=== PATIENT | female | born 1995 | race Caucasian/White ===

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

== ENCOUNTER 2019-04-05 19:04 | Inpatient (IN) | payer MEDICAID ==
[~2019-04-05] VITALS: Ht 165 cm; Wt 65.0 kg
[2019-04-05] VITALS (27 sets, daily range): BP systolic 78–128; BP diastolic 44–81
[~2019-04-05 19:04] MED LIST changes: +FERR325T18 PO; +IBUP-1773 PO; +RANI-613 PO; -RANI150T15 PO
--- NOTE | 2019-04-05 19:11 | NUR ---
FAUSTO MORALES presented to unit via ambulation from ED, accompanied by S.O, with c/o WATER POSSIBLY BROKE. FAUSTO MORALES weighed, gowned, voided, and to bed. EFHM and TOCO applied, VS taken. FAUSTO MORALES oriented to bed controls, call light, TV, heat, and A/C controls.
[2019-04-05] MEDS ORDERED: D5 LR IV SOLUTION 1,000 ML IV ONE (19:20)
[2019-04-05] MEDS ORDERED: D5 LR IV SOLUTION 1,000 ML IV SCH (19:24)
[2019-04-05] MEDS ORDERED: MINERAL OIL CONCENTRATE 99.9% 15 ML UDC TOP PRN (19:30)
[2019-04-05 19:57] LABS: BASOPHILS % (AUTO) 0 % (0-10); EOSINOPHILS % (AUTO) 0 % (0-10); HEMATOCRIT 34 % (35-52); HEMOGLOBIN 11.7 G/DL (11.5-16.0); LYMPHOCYTES # (AUTO) 1.4 X 10^3 (1.0-4.0); LYMPHOCYTES % (AUTO) 10 % (12-44); MEAN CORPUSCULAR HEMOGLOBIN 30 PG (25-34); MEAN CORPUSCULAR HGB CONC 35 G/DL (32-36); MEAN CORPUSCULAR VOLUME 86 FL (80-99); MEAN PLATELET VOLUME 10.1 FL (7.4-10.4); MONOCYTES # (AUTO) 0.9 X 10^3 (0.0-1.0); MONOCYTES % (AUTO) 6 % (0-12); NEUTROPHILS # (AUTO) 11.7 X 10^3 (1.8-7.8); NEUTROPHILS % (AUTO) 84 % (42-75); PLATELET COUNT 219 10^3/uL (130-400); RED CELL DISTRIBUTION WIDTH 13.7 % (10.0-14.5)
[2019-04-05] MEDS ORDERED: OXYTOCIN PRE-MIX DRIP 500 ML IV ONE (21:33)
[2019-04-05 21:34] LABS: LYMPHOCYTES % (MANUAL) 10 %; MONOCYTES % (MANUAL) 2 %; NEUTROPHILS % (MANUAL) 88 %
[2019-04-05 21:35] LABS: RBC MORPH NORMAL
[2019-04-05] MEDS ORDERED: OXYTOCIN PRE-MIX DRIP 500 ML IV SCH (21:37)
[2019-04-05] MEDS ORDERED: SUFENTA 0.6MCG/ML BUPIVA 0.125 100 ML ONE (21:44)
[2019-04-05] MEDS ORDERED: LACTATED RINGERS 1,000 ML IV ONE ×2 (22:13→22:25)
[2019-04-05] MEDS ORDERED: BUPIVACAINE 0.25% 30 ML (SENSORCAINE) VIAL ONE (22:25)
[2019-04-05] MEDS ORDERED: fentaNYL INJECTION 100 MCG/2 ML AMP ONE (22:25)
[2019-04-05] MEDS ORDERED: CATHETER FLUSH 10 ML SYR IV PRN (22:30)
[2019-04-05] MEDS ORDERED: NALOXONE 0.4 MG/ML 1 ML (NARCAN) VIAL IV PRN (22:30)
[2019-04-05] MEDS ORDERED: EPIDURAL (SUFENTA 0.6MCG/ML BUPIVA 0.125%) 100 ML BAG EPI SCH (22:30)
[2019-04-05] MEDS ORDERED: ONDANSETRON 4 MG/2 ML (SDV) Z0FRAN ONE (23:59)
[2019-04-06] VITALS (32 sets, daily range): BP systolic 99–131; BP diastolic 9–75
[2019-04-06] MEDS ORDERED: CATHETER FLUSH 10 ML SYR IV PRN (01:30)
[2019-04-06] MEDS ORDERED: ONDANSETRON 4 MG/2 ML (SDV) Z0FRAN IV PRN (01:30)
[2019-04-06] MEDS ORDERED: NALOXONE 0.4 MG/ML 1 ML (NARCAN) VIAL IV PRN (01:30)
[2019-04-06] MEDS ORDERED: LIDOCAINE/EPI 2% 1:200,00 (XYLOCAINE) 10 ML VIAL ONE (01:58)
[2019-04-06] MEDS ORDERED: MISOPROSTOL 200 MCG (CYTOTEC) TABLET ONE (02:40)
[2019-04-06] MEDS ORDERED: OXYTOCIN PRE-MIX DRIP 500 ML IV SCH (03:16)
[2019-04-06] MEDS ORDERED: WITCH HAZEL(TUCKS) 40 EA JAR TOP PRN (03:30)
[2019-04-06] MEDS ORDERED: MEASLES,MUMPS,RUBELLA 1 EA INJ SQ ONE (03:30)
[2019-04-06] MEDS ORDERED: TETANUS,DIPTH,PERTUSS P/F (BOOSTRIX) 0.5 ML VIAL IM ONE (03:30)
[2019-04-06] MEDS ORDERED: BENZOCAINE/MENTHOL (DERMOPLAST) 60 ML CAN TP PRN (03:30)
--- NOTE | 2019-04-06 03:52 | History & Physical-OB ---
OB - Chief Complaint & HPI Date/Time Date of Admission: Date of Admission: Apr 05, 2019 at 19:21 Date seen by a Provider: Apr 06, 2019 Time Seen by a Provider: 02:00 Chief Complaint/History OB-Reason for Admission/Chief: Rupture of Membranes Hx : 2 Hx Para: 1 Expected Date of Delivery: Apr 17, 2019 Gestational Age in Weeks: 38 Gestational Age in Days: 3 History of Labs RPR NR GBS Neg Allergies and Home Medications Allergies Coded Allergies: No Known Drug Allergies (Unverified , 11/13/13) Home Medications Ferrous Sulfate 325 Mg Tablet, 325 MG PO DAILY@0700 Prescribed by: SILAS BEY on 10/31/16 1044 Ibuprofen 600 Mg Tablet, 600 MG PO Q6H Prescribed by: SILAS BEY on 10/31/16 1044 Vit W-Ca,Fe,FA(<1 mg) 1 Each Tablet, 1 EACH PO DAILY, (Reported) Ranitidine HCl 150 Mg Tablet, 150 MG PO BID, (Reported) Patient Home Medication List Home Medication List Reviewed: Yes OB - History Hx of Present Care: Yes (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) Ultrasounds: Normal mid trimester US Obstetrical Complications: None Medical Complications: None Information Induced Hypertension: No Maternal Gestational Diabetes: No Hemorrhage: No Obstetrical History Hx : 2 Hx Para: 1 Hx # Term Pregnancies: 1 Number of Living Children: 1 Delivery History Hx Vacuum Extraction Assisted: Yes Hx Blood Disorders: No Patient Past Medical History Depression GERD Social History/Family History HIV/AIDS: No Recent Infectious Disease Expo: No Sexually Transmitted Disease: No Alcohol Use: Denies Use Recreational Drug Use: No Smoking Cessation: Never smoker Immunizations Tetanus Booster (TDap): Less than 5yrs Date of Influenza Vaccine: Mar 03, 2019 RPR/VDRL: Negative GBS Status: Negative HBsAG: Negative OB - Admission Exam Physical Exam Vitals: Vital Signs 04/06/19 04/06/19 01:15 02:45 Temp 36.7 Pulse 101 Resp 18 B/P (MAP) 126/58 (80) Pulse Ox 99 O2 Delivery Room Air HEENT: NCAT Heart: Rhythm Normal Lungs: Clear Abdomen: Gravid Cervical Dilatation: 10cm Effacement: 100% Station: +1 Membranes: Ruptured Amniotic Fluid: Clear Heart Rate: 130's Decelerations: Early Decelerations Contractions on Admission: < 5 Minutes Apart Intensity: Firm Labs Laboratory Tests Test 04/05/19 19:30 04/06/19 03:18 Range/Units White Blood Count 14.0 H 4.3-11.0 10^3/uL Red Blood Count 3.93 L 4.35-5.85 10^6/uL Hemoglobin 11.7 11.5-16.0 G/DL Hematocrit 34 L 35-52 % Mean Corpuscular Volume 86 80-99 FL Mean Corpuscular Hemoglobin 30 25-34 PG Mean Corpuscular Hemoglobin Concent 35 32-36 G/DL Red Cell Distribution Width 13.7 10.0-14.5 % Platelet Count 219 130-400 10^3/uL Mean Platelet Volume 10.1 7.4-10.4 FL Neutrophils (%) (Auto) 84 H 42-75 % Lymphocytes (%) (Auto) 10 L 12-44 % Monocytes (%) (Auto) 6 0-12 % Eosinophils (%) (Auto) 0 0-10 % Basophils (%) (Auto) 0 0-10 % Neutrophils # (Auto) 11.7 H 1.8-7.8 X 10^3 Lymphocytes # (Auto) 1.4 1.0-4.0 X 10^3 Monocytes # (Auto) 0.9 0.0-1.0 X 10^3 Eosinophils # (Auto) 0.0 0.0-0.3 10^3/uL Basophils # (Auto) 0.0 0.0-0.1 10^3/uL Neutrophils % (Manual) 88 % Lymphocytes % (Manual) 10 % Monocytes % (Manual) 2 % Blood Morphology Comment NORMAL Glucometer 81 70-110 MG/DL OB - Assessment/Plan/Diagnosis Assessment Assessment: active labor, rupture of membranes Admission Dx labor Admission Status: Inpatient Order (span 2 midnights) Reason for Inpatient Admission: Labor Plan Plan: Expectant Management Other Plan 23 yo @ 38.2 that presented with SROM Plan - Expectant management - GBS neg - Epidural ok Copy Copies To 1: SILAS BEY MD, HOLLY R MD Apr 06, 2019 03:52 POS
--- NOTE | 2019-04-06 03:56 | OB Labor & Delivery Record ---
Vag Delivery Note Vag Delivery Note Date of Delivery: 04/06/19 Preoperative Diagnosis: John Arnold is a (23 /Para 2 /1 ,Gestational Age (wks)38.3 here after SROM at home Postoperative Diagnosis: Same Surgeon: SILAS BEY Neurodiagnostic Technician: None Anesthesia: Epidural Delivery Type: @ 0234 Findings: Viable Male infant, apgars 6/8, weight 7#11, 3480 grams Lacerations: 2nd degree laceration Intact placenta with 3 vessel cord. No nuchal cord, body cord or shoulder dystocia Cytotec 800 mcg placed for hemorrhage prophylaxis Estimated Blood Loss: 200 ml Complications: None Condition: Stable Description of Procedure: The patient is a 23 year old female who presented with SROM at home. She was ad mitted and informed consent was obtained. Her labor course was unremarkable. She progressed to complete dilatation and began to push. She was then set up for delivery. The infant's head was delivered atraumatically in the BORIS position. The shoulders and remainder of the infant's body were then delivered without difficulty. Upon delivery, the head was held below the level of the perineum and the mouth and nares were bulb suctioned. The cord was doubly clamped and cut after 2 min delay and the was handed off to the pediatric staff. An intact placenta with 3-vessel cord delivered via Amrik and there was found to be minimal bleeding.~ Cytotec was placed. Vigorous fundal massage was performed and the fundus was found to be firm. IV oxytocin was given. Examination of the vagina and perineum revealed a 2nd laceration repaired in the usual fashion with 3-0 Reped suture. Following the repair, sponge, instrument and needle counts were correct. Mom in stable condition in the labor suite and infant was taken to nursery for oxygen support. Vitals - Labs Vital Signs - I&O Vital Signs Date Time Temp Pulse Resp B/P (MAP) Pulse Ox O2 Delivery O2 Flow Rate FiO2 04/06/19 02:45 101 18 126/58 (80) 99 Room Air 04/06/19 02:30 100 18 125/75 (92) 99 Room Air 04/06/19 02:15 94 18 131/63 (85) 99 Room Air 04/06/19 02:00 96 18 128/70 (89) 100 Room Air 04/06/19 01:45 94 18 124/63 (83) 100 Room Air 04/06/19 01:30 93 18 112/60 (77) 100 Room Air 04/06/19 01:15 36.7 100 18 109/70 (83) 100 Room Air 04/06/19 01:00 94 18 111/60 (77) 100 Room Air 04/06/19 00:45 94 18 111/60 (77) 100 Room Air 04/06/19 00:40 90 18 117/56 (76) 100 Room Air 04/06/19 00:35 105 18 117/64 (81) 100 Room Air 04/06/19 00:30 81 18 120/58 (78) 100 Room Air 04/06/19 00:25 76 18 122/58 (79) 100 Room Air 04/06/19 00:20 90 18 111/58 (75) 100 Room Air 04/06/19 00:13 77 18 117/63 (81) 100 Room Air 04/06/19 00:10 75 18 123/63 (83) 99 Room Air 04/06/19 00:06 83 18 114/60 (78) 99 Room Air 04/06/19 00:03 93 18 122/64 (83) 99 Room Air 04/06/19 00:00 36.6 73 18 120/60 (80) 99 Room Air 04/05/19 23:57 65 18 94/52 (66) 99 Room Air 04/05/19 23:56 68 18 84/44 (57) 99 Room Air 04/05/19 23:54 64 18 90/44 (59) 99 Room Air 04/05/19 23:52 49 18 78/45 (56) 99 Room Air 04/05/19 23:50 97 18 112/57 (75) 99 Room Air 04/05/19 23:45 103 18 114/71 (85) 97 Room Air 04/05/19 23:40 106 18 122/81 (95) 97 Room Air 04/05/19 23:35 108 18 123/67 (85) 97 Room Air 04/05/19 23:30 101 18 126/66 (86) 97 Room Air 04/05/19 23:25 97 18 127/63 (84) 98 Room Air 04/05/19 23:20 101 18 125/66 (85) 98 Room Air 04/05/19 23:17 109 18 128/64 (85) 98 Room Air 04/05/19 23:10 93 18 121/58 (79) 98 Room Air 04/05/19 23:05 102 18 123/59 (80) 98 Room Air 04/05/19 23:00 86 18 123/68 (86) 98 Room Air 04/05/19 22:55 103 18 114/71 (85) 98 Room Air 04/05/19 22:50 106 18 124/67 (86) 98 Room Air 04/05/19 22:45 104 18 124/67 (86) 98 Room Air 04/05/19 22:40 111 18 123/64 (83) 98 Room Air 04/05/19 22:35 99 18 120/66 (84) 98 Room Air 04/05/19 22:20 106 18 119/62 (81) Room Air 04/05/19 22:06 36.6 97 18 98 Room Air 04/05/19 22:05 96 18 119/64 (82) Room Air 04/05/19 21:50 100 18 111/65 (80) Room Air 04/05/19 21:45 36.6 97 18 125/69 (87) Room Air 04/05/19 21:00 98 18 114/70 (85) 98 Room Air 04/05/19 20:00 36.8 88 18 119/67 (84) 99 Room Air Labs Laboratory Tests 04/05/19 19:30: White Blood Count 14.0H, Red Blood Count 3.93L, Hemoglobin 11.7, Hematocrit 34L, Mean Corpuscular Volume 86, Mean Corpuscular Hemoglobin 30, Mean Corpuscular Hemoglobin Concent 35, Red Cell Distribution Width 13.7, Platelet Count 219, Mean Platelet Volume 10.1, Neutrophils (%) (Auto) 84H, Lymphocytes (%) (Auto) 10L, Monocytes (%) (Auto) 6, Eosinophils (%) (Auto) 0, Basophils (%) (Auto) 0, Neutrophils # (Auto) 11.7H, Lymphocytes # (Auto) 1.4, Monocytes # (Auto) 0.9, Eosinophils # (Auto) 0.0, Basophils # (Auto) 0.0, Neutrophils % (Manual) 88, Lymphocytes % (Manual) 10, Monocytes % (Manual) 2, Blood Morphology Comment NORMAL 04/06/19 03:18: Glucometer 81 SILAS BEY MD Apr 06, 2019 03:56 POS
[2019-04-06] MEDS ORDERED: MISOPROSTOL 200 MCG (CYTOTEC) TABLET PR ONE (04:00)
--- NOTE | 2019-04-06 04:00 | NUR ---
ff 1 below umbilicus, light rubra noted. ice pack applied to perineum. epidural cath removed. pt tolerated well.
[2019-04-06] MEDS: IBUPROFEN 600 MG (MOTRIN) TAB PO SCH ×4 (05:18→23:32)
--- NOTE | 2019-04-06 05:21 | NUR ---
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 Monitors off pt up to bathroom at this time. Addendum: 04/06/19 at 6351 by MORTEZA BRAVO RN WRONG PT
[2019-04-06] MEDS: CATHETER FLUSH 10 ML SYR IV SCH ×3 (06:06→21:07)
[2019-04-06] MEDS: ACETAMINOPHEN 500 MG TAB (TYLENOL) PO SCH ×3 (06:43→21:05)
[2019-04-06] MEDS: DOCUSATE SODIUM 100 MG (COLACE) CAP PO SCH ×2 (09:13→21:05)
--- NOTE | 2019-04-06 17:20 | Anesthesia-Regional Post-Op ---
Regional Patient Condition Mental Status: Alert, Oriented x3 Circulation: Same as Pre-Op Headache: Absent Sensation: Full Recovery Motor Block: Absent Post Op Complications Complications None Follow Up Care/Instructions Patient Instructions None needed. Anesthesia/Patient Condition Patient is doing well, no complaints, stable vital signs, no apparent adverse anesthesia problems. LENIN WADSWORTH DO Apr 06, 2019 17:20 POS
[2019-04-07 03:46] VITALS: BP 117/56
[2019-04-07] MEDS: IBUPROFEN 600 MG (MOTRIN) TAB PO SCH ×3 (05:20→17:48)
[2019-04-07] MEDS: ACETAMINOPHEN 500 MG TAB (TYLENOL) PO SCH ×3 (05:20→22:49)
[2019-04-07 06:05] LABS: BASOPHILS % (AUTO) 0 % (0-10); EOSINOPHILS # (AUTO) 0.1 10^3/uL (0.0-0.3); EOSINOPHILS % (AUTO) 1 % (0-10); HEMATOCRIT 31 % (35-52); HEMOGLOBIN 10.2 G/DL (11.5-16.0); LYMPHOCYTES # (AUTO) 1.4 X 10^3 (1.0-4.0); LYMPHOCYTES % (AUTO) 17 % (12-44); MEAN CORPUSCULAR HEMOGLOBIN 29 PG (25-34); MEAN CORPUSCULAR HGB CONC 33 G/DL (32-36); MEAN CORPUSCULAR VOLUME 89 FL (80-99); MEAN PLATELET VOLUME 9.6 FL (7.4-10.4); MONOCYTES # (AUTO) 0.6 X 10^3 (0.0-1.0); MONOCYTES % (AUTO) 7 % (0-12); NEUTROPHILS % (AUTO) 75 % (42-75); PLATELET COUNT 191 10^3/uL (130-400)
[2019-04-07 08:30] VITALS: BP 105/52
--- NOTE | 2019-04-07 08:30 | NUR ---
CARING FOR INFANT IN ROOM. VSS. A.M. ASSESSMENT COMPLETED.
[2019-04-07] MEDS: DOCUSATE SODIUM 100 MG (COLACE) CAP PO SCH ×2 (09:59→22:48)
--- NOTE | 2019-04-07 10:30 | NUR ---
CONTINUES TO DO WELL. HOLDING INFANT.
[2019-04-07 12:00] VITALS: BP 98/53
--- NOTE | 2019-04-07 12:15 | NUR ---
VISITORS AT BEDSIDE. DENIES ANY PAIN AT THIS TIME.
--- NOTE | 2019-04-07 14:25 | NUR ---
PT NAPPING WHILE IN THE NURSERY.
--- NOTE | 2019-04-07 14:43 | Progress Note ---
Subjective Subjective/Events-last exam Doing well. No new complaints. Bleeding slowed, pain controlled. Objective Exam Last Set of Vital Signs Vital Signs Date Time Temp Pulse Resp B/P (MAP) Pulse Ox O2 Delivery O2 Flow Rate FiO2 04/07/19 12:00 36.9 79 18 98/53 (68) 98 Room Air Capillary Refill : Less Than 3 Seconds I&O Intake and Output 04/07/19 00:00 Intake Total 2350 ml Balance 2350 ml Intake Oral 2350 ml # Voids 7 # Bowel Movements 1 General: Alert, Oriented X3, Cooperative Psych/Mental Status: Mood NL Results/Procedures Lab Laboratory Tests 04/07/19 05:53: White Blood Count 8.0, Red Blood Count 3.48L, Hemoglobin 10.2L, Hematocrit 31L, Mean Corpuscular Volume 89, Mean Corpuscular Hemoglobin 29, Mean Corpuscular Hemoglobin Concent 33, Red Cell Distribution Width 14.0, Platelet Count 191, Mean Platelet Volume 9.6, Neutrophils (%) (Auto) 75, Lymphocytes (%) (Auto) 17, Monocytes (%) (Auto) 7, Eosinophils (%) (Auto) 1, Basophils (%) (Auto) 0, Neutrophils # (Auto) 6.0, Lymphocytes # (Auto) 1.4, Monocytes # (Auto) 0.6, Eosinophils # (Auto) 0.1, Basophils # (Auto) 0.0 Assessment/Plan Assessment/Plan (1) Status post vaginal delivery Assessment & Plan: SROM at 38w3d; s/p on 04/06/19 Routine care. Anticipate DC home tomorrow. Clinical Quality Measures DVT/VTE Risk/Contraindication: Risk Factor Score Per Nursin RFS Level Per Nursing on Admit: 1=Low/No VTE PPX JONO ARENAS DO Apr 07, 2019 14:43 POS
[2019-04-07 16:00] VITALS: BP 109/57
--- NOTE | 2019-04-07 16:00 | NUR ---
VSS. VISITORS AT BEDSIDE. OFFERS NO COMPLAINTS. CARING FOR IN ROOM.
--- NOTE | 2019-04-07 18:30 | NUR ---
EATING FOOD BROUGHT IN FROM S.O. CONTINUES TO CARE FOR IN ROOM. GOOD INTERACTION NOTED.
[2019-04-07 22:51] VITALS: BP 107/55
[2019-04-08] MEDS: IBUPROFEN 600 MG (MOTRIN) TAB PO SCH ×2 (01:38→09:37)
[2019-04-08 03:52] VITALS: BP 110/83
[2019-04-08] MEDS: ACETAMINOPHEN 500 MG TAB (TYLENOL) PO SCH (06:36)
--- NOTE | 2019-04-08 09:02 | NUR ---
report given to JOHN Clark.
[2019-04-08 09:15] VITALS: BP 108/67
[2019-04-08 09:30] VITALS: BP 108/67
[2019-04-08] MEDS: DOCUSATE SODIUM 100 MG (COLACE) CAP PO SCH (09:37)
--- NOTE | 2019-04-08 11:29 | Discharge Summary ---
Diagnosis/Chief Complaint Date of Admission Apr 05, 2019 at 19:21 Date of Discharge 04/08/19 Admission Diagnosis Admission Diagnosis Term Vaginal Delivery of Male 38 Week gestation Discharge Diagnosis See Below Problems/Diagnosis: (1) Status post vaginal delivery Assessment & Plan: SROM at 38w3d; s/p on 04/06/19 Routine care. Anticipate DC home tomorrow. 04/08: Doing well, pain well controlled, bleeding controlled, plan to d/c today with 6 week f.u with Ana Discharge Summary-Simple/Stand Procedures Epidural placement Discharge Physical Examination Allergies: Coded Allergies: No Known Drug Allergies (Unverified , 11/13/13) Vitals & I&Os Vital Sign - Last 12Hours Date Time Temp Pulse Resp B/P (MAP) Pulse Ox O2 Delivery O2 Flow Rate FiO2 04/08/19 03:52 36.8 67 16 110/83 (92) 97 Room Air General Appearance: Alert, Oriented X3, Cooperative, No Acute Distress HEENT: Mucous Memb Moist/[place] Respiratory: Clear to Auscultation, Normal Air Movement Cardiovascular: Regular Rate, No Murmurs Abdominal: Normal Bowel Sounds, Soft, No Tenderness, No Masses, Other (Fundus firm and below umbilicus) Extremities: No Edema, No Tenderness/Swelling Skin: No Rashes, No Breakdown Neuro: Strength at 5/5 X4 Ext, Cranial Nerves 3-12 NL Psych/Mental Status: Mental Status NL, Mood NL Hospital Course Was the Problem List Reviewed?: Yes See final discharge diagnosis. Discussion & Recommendations 23 yo G2 now P2 that delivered at 38 week gestation after SROM at home via Discharge Condition at discharge stable Instructions to patient/family Please see electronic discharge instructions given to patient. Discharge Medications Reviewed and agree with Discharge Medication list on patient's Discharge Instruction sheet Clinical Quality Measures DVT/VTE Risk/Contraindication: Risk Factor Score Per Nursin RFS Level Per Nursing on Admit: 1=Low/No VTE PPX Copy Copies To 1: SILAS BEY MD, HOLLY R MD Apr 08, 2019 11:29 POS
--- NOTE | 2019-04-08 11:34 | Discharge Instructions ---
Discharge Inst-[facility] Reconcile Patient Problems Problems Reviewed?: Yes Depart Medications New, Converted or Re-Newed RX: Transmitted to Pharmacy Continued Medications: Ferrous Sulfate (Ferrous Sulfate) 325 Mg Tablet 325 MG PO DAILY@0700 for 30 Days, TAB Ibuprofen (Ibuprofen) 600 Mg Tablet 600 MG PO Q6H, #90 TAB Vit W-Ca,Fe,FA(<1 mg) ( Vitamins) 1 Each Tablet 1 EACH PO DAILY, TAB Ranitidine HCl (Zantac) 150 Mg Tablet 150 MG PO BID, TAB Follow Up/Instructions Goal/Follow Up: 6 Week F/u with Dr Perez Activity Activity: Activity as Tolerated Driving Instructions: You May Drive NO SMOKING: NO SMOKING Nothing Inside Vagina: No Douching, No [place], No Tampons Diet Discharge Diet: No Restrictions Symptoms to Report to : Bleeding Excessive, Fever Over 101 Degrees F, Nausea/Vomiting, Shortness of Breath For Any Problems or Questions: Contact Your Physician Copies To 1: SILAS PEREZ MD, HOLLY R MD Apr 08, 2019 11:34 POS
--- NOTE | 2019-04-08 14:15 | NUR ---
PT DISCHARGED TO HOME, AMBULATED TO PRIVATE CAR WITH SECURED IN REAR FACING CAR SEAT AND S/O AND LADLE REPAIRER AT SIDE, NO DISTRESS NOTED.
--- OUTSIDE RECORDS SUMMARY | 2019-05-01 17:42 | XMS REPORT | Continuity of Care Document ---
Author Organization Unknown Address Unknown Phone Unavailable Allergies Active Description Code Type Severity Reaction Onset Reported/Identified Relationship to Patient Clinical Status Yes codeine Drug Allergy N/A N/A 06/11/2008 Medications There is no data. Problems Date Dx Coded Attending Type Code Diagnosis Diagnosed By 02/06/2008 JOSÉ MIGUEL LEVY APRN 462 sore throat 02/06/2008 JONO ARENAS DO 462 sore throat 02/06/2008 GHAZALA NORIEGA APRN 462 sore throat 06/11/2008 JOSÉ MIGUEL LEVY APRN 465.9 UPPER RESPIRATORY INFECTION ACUTE 06/11/2008 JONO ARENAS DO 465.9 UPPER RESPIRATORY INFECTION ACUTE 06/11/2008 GHAZALA NORIEGA APRN 465.9 UPPER RESPIRATORY INFECTION ACUTE 07/23/2008 JOSÉ MIGUEL LEVY APRN 487.1 INFLUENZA 07/23/2008 JONO ARENAS DO 487.1 INFLUENZA 07/23/2008 GHAZALA NORIEGA APRN 487.1 INFLUENZA 08/27/2008 JOSÉ MIGUEL LEVY APRN 786.2 cough 08/27/2008 JONO ARENAS DO 786.2 cough 08/27/2008 GHAZALA NORIEGA APRN A 786.2 cough 08/31/2008 JOSÉ MIGUEL LEVY APRN 008.8 GASTROENTERITIS VIRAL 08/31/2008 JONO ARENAS DO 008.8 GASTROENTERITIS VIRAL 08/31/2008 GHAZALA NORIEGA APRN 008.8 GASTROENTERITIS VIRAL 12/12/2008 JOSÉ MIGUEL LEVY APRN V06.5 DT, TETANUS-DIPHTHERIA [Td] ,TDAP 12/12/2008 JONO ARENAS DO V06.5 DT, TETANUS-DIPHTHERIA [Td] ,TDAP 12/12/2008 GHAZALA NORIEGA APRN V06.5 DT, TETANUS-DIPHTHERIA [Td] ,TDAP 01/11/2009 JOSÉ MIGUEL LEVY APRN 079.99 VIRAL SYNDROME 01/11/2009 JONO ARENAS DO 079.99 VIRAL SYNDROME 01/11/2009 GHAZALA NORIEGA APRN 079.99 VIRAL SYNDROME 03/06/2009 JOSÉ MIGUEL LEVY APRN 599.0 URINARY TRACT INFECTION 03/06/2009 JONO ARENAS DO 599.0 URINARY TRACT INFECTION 03/06/2009 GHAZALA NORIEGA APRN 599.0 URINARY TRACT INFECTION 06/11/2009 JOSÉ MIGUEL LEVY APRN 692.9 CONTACT DERMATITIS AND OTHER ECZEMA, UNSPECIFIED CAUSE 06/11/2009 JONO ARENAS DO 692.9 CONTACT DERMATITIS AND OTHER ECZEMA, UNSPECIFIED CAUSE 06/11/2009 GHAZALA NORIEGA APRN 692.9 CONTACT DERMATITIS AND OTHER ECZEMA, UNSPECIFIED CAUSE 12/18/2009 JOSÉ MIGUEL LEVY APRN V70.3 SPORTS/SCHOOL EXAM 12/18/2009 JONO ARENAS DO V70.3 SPORTS/SCHOOL EXAM 12/18/2009 GHAZALA NORIEGA APRN V70.3 SPORTS/SCHOOL EXAM 01/25/2013 JOSÉ MIGUEL LEVY APRN V01.79 CONTACT WITH OR EXPOSURE TO OTHER VIRAL DISEASES 01/25/2013 JONO ARENAS DO V01.79 CONTACT WITH OR EXPOSURE TO OTHER VIRAL DISEASES 01/25/2013 GHAZLAA NORIEGA APRN V01.79 CONTACT WITH OR EXPOSURE TO OTHER VIRAL DISEASES 02/12/2014 JONO ARENAS DO V74.1 TB SCREENING 02/12/2014 GHAZALA NORIEGA APRN V74.1 TB SCREENING Procedures Code Description [place] [id number] STRE P A (IN-HOUSE) 01/25/2013 54241 MONO TEST (IN-HOUSE) 01/25/2013 58980 TB T EST INTRADERMAL 02/12/2014 76889 TB T EST INTRADERMAL 04/11/2014 Results Test Result Range CBC With Differential/Platelet - 6 00:00 WBC 8.4 x10E3/uL 3.4-10.8 RBC 4.05 x10E6/uL 3.77-5.28 Hemoglobin 12.8 g/dL 11.1-15.9 Hematocrit 36.3 % 34.0-46.6 MCV 90 fL 79-97 MCH 31.6 pg 26.6-33.0 MCHC 35.3 g/dL 31.5-35.7 RDW 12.7 % 12.3-15.4 Platelets 219 x10E3/uL 150-379 Neutrophils 80 % Lymphs 13 % Monocytes 7 % Eos 0 % Basos 0 % Neutrophils (Absolute) 6.7 x10E3/uL 1.4- 7.0 Lymphs (Absolute) 1.1 x10E3/uL 0.7-3.1 Monocytes(Absolute) 0.5 x10E3/uL 0.1-0.9 Eos (Absolute) 0.0 x10E3/uL 0.0-0.4 Baso (Absolute) 0.0 x10E3/uL 0.0-0.2 Immature Granulocytes 0 % Immature Grans (Abs) 0.0 x10E3/uL 0.0-0. 1 ABO Grouping and Rho(D) Typing - 6 00:00 ABO Grouping O Rh Factor Positive TSH - 03/18/16 00:00 TSH 0.137 uIU/mL 0.450-4.500 Rubella Antibodies, IgG - 03/18/16 00:00 Rubella Antibodies, IgG 2.04 index Immun e >0.99 Antibody Screen - 03/18/16 00:00 Antibody Screen Negative Negative Genital Culture, Routine - 03/18/16 00:0 0 Genital Culture, Routine Note Urine Culture, Routine - 03/18/16 00:00 Urine Culture, Routine Note Request Problem - 03/18/16 00:00 Request Problem Note Encounters ACCT No. Visit Date/Time Discharge Status Pt. Type Provider Facility Loc./Unit Complaint [id number] 04/11/2014 10:56:00 04/11/2014 23:59: 59 CLS Outpatient GHAZALA NORIEGA APRN [id number] 02/12/2014 11:46:00 02/12/2014 23:59: 59 CLS Outpatient JONO ARENAS DO [id number] 01/25/2013 12:13:00 01/25/2013 23:59: 59 CLS Outpatient JOSÉ MIGUEL LEVY APRN [id number] 03/20/2016 05:05:00 Document Registration [email or web address] 09/19/2014 09:10:13 ACT Document Registration
== END 2019-04-08 14:15 | disposition home or self-care (01) | DRG 807 ==
LOC: WSo 19:04 → LDRP 19:05 → WSo 19:20 → LDRP 19:21
PROVIDERS: ADMIT Family Medicine; ATTEND Family Medicine
PROC: 10E0XZZ Delivery of Products of Conception, External Approach (ICD-10-PCS; principal; 2019-04-06)
PROC: 0KQM0ZZ Repair Perineum Muscle, Open Approach (ICD-10-PCS; 2019-04-06)
DX: O99.62 Diseases of the digestive system complicating childbirth (principal); O70.1 Second degree perineal laceration during delivery; K21.9 Gastro-esophageal reflux disease without esophagitis; O99.344 Other mental disorders complicating childbirth; G40.909 Epilepsy, unspecified, not intractable, without status epilepticus; O99.354 Diseases of the nervous system complicating childbirth; F32.9 Major depressive disorder, single episode, unspecified; Z3A.38 38 weeks gestation of pregnancy; Z37.0 Single live birth
CPT/HCPCS: 36415; 82962; 85007; 85025; 85027; 86850; 86900; 86901; 99212